=== PATIENT | female | born 1990 | race Caucasian/White ===

== ENCOUNTER → 2020-09-13 | Outpatient (CLI) | payer OTHER ==
[~2020-09-13] MED LIST: CLARITIN 10MG T10 MG PO; DOCUSATE SODIU100 MG PO; NAPROXEN250 MG PO; ROXICODONE TAB 55 MG PO
[2020-09-13 12:56] LABS: HEMOGLOBIN 14.1 gm/dl (12.3-15.3); RED BLOOD COUNT 4.77 M/UL (4.00-5.10); WHITE BLOOD COUNT 6.1 K/UL (4.5-11.0)
== END ==
LOC: OPSV2 12:00
PROVIDERS: Obstetrics & Gynecology
DX: Z01.812 Encounter for preprocedural laboratory examination (principal); R10.2 Pelvic and perineal pain
CPT/HCPCS: 36415; 81001; 85025

== ENCOUNTER 2020-09-19 06:08 | Day surgery (SDC) | payer OTHER ==
[~2020-09-19] VITALS: Ht 165.1 cm; Wt 68.0 kg
[2020-09-19] MEDS ORDERED: CLARITIN 10MG T10 MG PO (06:33)
[2020-09-19] MEDS ORDERED: DOCUSATE SODIU100 MG PO (10:30)
[2020-09-19] MEDS ORDERED: NAPROXEN250 MG PO (10:30)
[2020-09-19] MEDS ORDERED: ROXICODONE TAB 55 MG PO (10:30)
[2020-09-19 15:35] LABS: HEMOGLOBIN 12.7 gm/dl (12.3-15.3)
== END 2020-09-20 07:28 | disposition home or self-care (01) ==
LOC: OR 06:08 → OB 13:29 → OR 09-20 07:28
PROVIDERS: Obstetrics & Gynecology
DX: D25.9 Leiomyoma of uterus, unspecified (principal); N72 Inflammatory disease of cervix uteri; N88.8 Other specified noninflammatory disorders of cervix uteri; N83.8 Other noninflammatory disorders of ovary, fallopian tube and broad ligament; K58.9 Irritable bowel syndrome, unspecified; K21.9 Gastro-esophageal reflux disease without esophagitis; F41.9 Anxiety disorder, unspecified; Z88.8 Allergy status to other drugs, medicaments and biological substances; Z20.822 Contact with and (suspected) exposure to COVID-19
CPT/HCPCS: 36415; 84702; 85014; 85018; J0690; J1100; J1170; J1885; J2001; J2250; J2270; J2405; J2704; J2710; J2795; J3010; J7120; U0002